=== PATIENT | male | born 1970 | race Caucasian/White ===

== ENCOUNTER 2022-08-19 14:05 | Outpatient (CLI) | payer BC | END 2022-08-19 14:06 | disposition home or self-care (01) | LOC: CSHULT 14:05 | PROVIDERS: ATTEND Internal Medicine Gastroenterology | DX: R10.13 Epigastric pain (principal); Z12.11 Encounter for screening for malignant neoplasm of colon; K76.89 Other specified diseases of liver | CPT/HCPCS: 76705 ==